=== PATIENT | female | born 1940 | race Caucasian/White ===

== ENCOUNTER 2022-06-30 15:02 | Outpatient (CLI) | payer MEDICARE, SELFPAY ==
--- NOTE | ~2022-06-30 | XR_ITS ---
EXAMINATION: XR abdomen/kub 1V DATE: 06/30/2022 15:37 INDICATION: Escherichia coli urinary tract infection. TECHNIQUE: A supine view of the abdomen on 2 radiographs was obtained. COMPARISON: CT abdomen and pelvis 06/30/2022 FINDINGS: There are no dilated loops of bowel. There is no urolithiasis. There are phleboliths in the pelvis. There are changes of anterior and posterior fusion procedures in lumbar spine. There is a pe ssary in the vagina. IMPRESSION: 1. No urolithiasis. Reviewed, dictated and finalized at [facility]. IMPRESSION: 1. No urolithiasis.
--- NOTE | ~2022-06-30 | CT_ITS ---
EXAMINATION: CT abdomen pelvis wo con DATE: 06/30/2022 15:28 INDICATION: Escherichia coli urinary tract infection. Dysuria. Hematuria. History of chronic lymphocy tic leukemia. TECHNIQUE: Computed tomography (CT) of the abdomen and pelvis was performed without intravenous contr ast. Automated exposure control and iterative reconstruction technique were employed. Exam dose: 321 .13 mGy-cm total exam DLP. COMPARISON: 06/30/2022 KUB FINDINGS: Calcified right hilar and mediastinal lymph nodes and calcified hepatic and splenic granulo mas, consistent with old granulomatous disease. Normal heart size. Coronary artery calcifications. No pericardial or pleural effusion. No infiltrate or consolidation in the lower lung zones. Diffuse hepatic steatosis, with minimal pericholecystic sparing. No hepatic, splenic, pancreatic or a drenal space-occupying mass lesion is evident. The adrenal glands are quite small. No renal mass lesion or urinary tract calculus or hydroureteronephrosis is evident. The urinary bladd er is unremarkable. Pessary device is noted. Status post hysterectomy. There is extensive atherosclerotic calcification of the abdominal aorta, prominent calcification at t he origins of the celiac and particularly superior mesenteric arteries. No abdominal aortic aneurysm. No intraperitoneal or retroperitoneal or pelvic mass lesion or adenopathy or ascites is detected. Small sliding hiatal hernia. Mild colonic diverticulosis; no CT evidence of diverticulitis. No bowel obstruction or intraperitoneal free air. Status post posterior and interbody spinal fusion at L3-4. Grade 2 anterolisthesis at L4-5 due to degenerative change at the apophyseal joints. Osteopenia. IMPRESSION: Small sliding hiatal hernia Mild colonic diverticulosis Hepatic steatosis Status post hysterectomy Pessary device Status post posterior and interbody surgical fusion at L3-4 Grade 2 anterolisthesis at L4-5 Reviewed, dictated and finalized at [facility]. Reviewed, dictated and finalized at location [facility].
== END 2022-06-30 15:03 | disposition home or self-care (01) ==
PROVIDERS: PCP Internal Medicine; Visit Provider Nurse Practitioner Adult Health
DX: N39.0 Urinary tract infection, site not specified (principal); K44.9 Diaphragmatic hernia without obstruction or gangrene; K57.30 Diverticulosis of large intestine without perforation or abscess without bleeding; K76.0 Fatty (change of) liver, not elsewhere classified; Z98.1 Arthrodesis status
CPT/HCPCS: 74018; 74176